=== PATIENT | female | born 1960 | race Caucasian/White ===

== ENCOUNTER 2018-07-30 11:15 | Emergency (ER) | payer OTHER ==
[2018-07-30 11:56] VITALS: BP 115/68
[2018-07-30] MEDS ORDERED: Acetaminophen TAB* 325 MG PO ONE (12:28)
[2018-07-30 12:40] LABS: Influenza A Molecular POSITIVE (Negative)
--- NOTE | 2018-07-30 12:50 | UC ---
FLU HPI - HPI Summary HPI Summary: Pt c/o sudden onset of fever, chills, body aches x 3 days. C/ o ear pain x 2 days. - History of Current Complaint Chief Complaint: UCRespiratory Stated Complaint: COUGH, SORE THROAT, FEVER Time Seen by Provider: 07/30/18 12:46 Hx Obtained From: Patient Hx Last Menstrual Period: n/a ?: No Onset/Duration: Sudden Onset, Lasting Days, Still Present Severity Currently: Mild Severity Initially: Moderate Pain Intensity: 4 Associated Signs & Symptoms: Positive: Fever, Myalgia, Nasal Congestion Related Hx: Possible Flu/Infectious Exposure - Risk Factors Influenza Risk Factors: Negative - Allergy/Home Medications Allergies/Adverse Reactions: Allergies Allergy/AdvReac Type Severity Reaction Status Date / Time aspirin Allergy Hives Verified 07/30/18 11:46 amoxicillin AdvReac churning Verified 07/30/18 11:46 stomach Home Medications: Home Medications Estradiol 1 mg PO DAILY 07/30/18 [History Confirmed 07/30/18] Phenylephrine/Dm/Acetaminop/GG [Mucinex Fast-Max Cold-Flu Cplt] 2 tab PO BID 03/09 [History Confirmed 07/30/18] Progesterone, Micronized [Progesterone] 100 mg PO DAILY 07/30/18 [History Confirmed 07/30/18] Sertraline* [Zoloft*] 50 mg PO DAILY 07/30/18 [History Confirmed 07/30/18] Theraflu Pm 1 dose PO ONCE PRN 07/30/18 [History Confirmed 07/30/18] PMH/Surg Hx/FS Hx/Imm Hx Previously Healthy: Yes - Surgical History Surgical History: Yes Surgery Procedure, Year, and Place: b/l knees - Family History Known Family History: Positive: Cardiac Disease - Social History Occupation: Employed Full-time Lives: With Family Alcohol Use: Occasionally Substance Use Type: None Substance Use Comment - Amount & Last Used: coffee Smoking Status (MU): Never Smoked Tobacco Have You Smoked in the Last Year: No Review of Systems All Other Systems Reviewed And Are Negative: Yes Constitutional: Positive: Fever, Chills, Fatigue Skin: Positive: Negative Eyes: Positive: Negative ENT: Positive: Sinus Congestion Respiratory: Positive: Cough Cardiovascular: Positive: Negative Gastrointestinal: Positive: Negative Genitourinary: Positive: Negative Motor: Positive: Negative Neurovascular: Positive: Negative Musculoskeletal: Positive: Arthralgia, Myalgia Neurological: Positive: Negative Psychological: Positive: Negative Is Patient Immunocompromised?: No Physical Exam Triage Information Reviewed: Yes Appearance: Ill-Appearing Vital Signs: Initial Vital Signs Temp 100.3 F 07/30/18 11:50 Pulse 110 07/30/18 11:50 Resp 22 07/30/18 11:50 BP 115/68 07/30/18 11:50 Pulse Ox 99 07/30/18 11:50 Vital Signs Reviewed: Yes Eye Exam: Normal ENT: Positive: Nasal congestion Dental Exam: Normal Neck exam: Normal Respiratory Exam: Normal Cardiovascular Exam: Normal Musculoskeletal Exam: Normal Neurological Exam: Normal Psychological Exam: Normal Skin Exam: Normal Flu Course/Dx - Differential Dx/Diagnosis Differential Diagnosis/HQI/PQRI: Influenza, Upper Respiratory Infection Provider Diagnosis: Influenza A Discharge - Sign-Out/Discharge Documenting (check all that apply): Patient Departure All imaging exams completed and their final reports reviewed: No Studies - Discharge Plan Condition: Stable Disposition: HOME Prescriptions: Oseltamivir CAP* [Tamiflu CAP*] 75 mg PO Q12H #10 cap Patient Education Materials: Influenza (ED) Referrals: Will Baker MD [Primary Care Provider] - If Needed - Billing Disposition and Condition Condition: STABLE Disposition: Home - Attestation Statements Provider Attestation: I was available for consult. This patient was seen by the DELIA. The patient was not presented to, seen by, or examined by me. EK
== END 2018-07-30 13:05 | disposition home or self-care (01) ==
LOC: UCCORT 11:15
DX: J11.1 Influenza due to unidentified influenza virus with other respiratory manifestations (principal); Z88.6 Allergy status to analgesic agent; Z88.1 Allergy status to other antibiotic agents
CPT/HCPCS: 99202; A9270-GY; G0463